=== PATIENT | male | born 1980 | race African-American/Black ===

== ENCOUNTER 2022-08-05 10:05 | Emergency (ER) | payer OTHER ==
[2022-08-05] MEDS ORDERED: Lidocaine 1% PF 2 ML SDV INJECT ONE (10:30)
[2022-08-05] MEDS ORDERED: Cephalexin 500 MG Cap PO ONE (10:43)
[2022-08-05] MEDS ORDERED: traMADol 50 MG Tab PO ONE (10:43)
== END 2022-08-05 11:01 | disposition home or self-care (01) ==
LOC: MW.ED 10:05
DX: L02.511 Cutaneous abscess of right hand (principal); Z72.0 Tobacco use
CPT/HCPCS: 10060; 99283; A9270; J3490